=== PATIENT | female | born 1995 | race Caucasian/White ===

== ENCOUNTER 2017-01-24 15:13 | Emergency (ER) | payer MEDICAID ==
[~2017-01-24] VITALS: Ht 167.6 cm; Wt 73.9 kg
[2017-01-24 15:57] LABS: Urine Bilirubin Negative (Negative); Urine Blood TRACE /uL (Negative); Urine Color Yellow (Yellow); Urine Glucose Normal (Normal); Urine Ketone 1+ (Negative); Urine Mucus FEW (None Seen); Urine Nitrite Negative (Negative); Urine RBC 11 /hpf (0 - 4); Urine Sperm PRESENT /hpf (None Seen); Urine Squamous Epithelial Cell FEW /hpf (<5); Urine Urobilinogen Normal (Negative)
[2017-01-24 16:26] VITALS: BP 119/60
== END 2017-01-24 16:49 | disposition home or self-care (01) ==
LOC: ER 15:17
DX: L02.92 Furuncle, unspecified (principal); N39.0 Urinary tract infection, site not specified
CPT/HCPCS: 81001; 81025